=== PATIENT | female | born 1990 | race Caucasian/White ===

== ENCOUNTER 2019-11-28 08:25 | Emergency (ER) | payer BC, OTHER ==
--- NOTE | 2019-11-28 09:52 | EDM.PDOC ---
ED HPI GENERAL MEDICAL PROBLEM - General Chief Complaint: General Stated Complaint: POSSIBLE FLU Time Seen by Provider: 11/28/19 09:40 Source of Information: Reports: Patient History Limitations: Reports: No Limitations - History of Present Illness INITIAL COMMENTS - FREE TEXT/NARRATIVE: Patient is a 29-year-old female comes in complaining of fever with muscle aches for the last 3 to 4 days. Patient also is complaining of having a cough which is occasionally productive of a clear blood-streaked sputum. She has vomited 1 time. She denies any diarrhea or dysuria. Patient denies being short of breath. She has not had previously similar symptoms with multiple members of the family have been having flulike symptoms. Patient is complaining of a mild headache. Taking to treat her symptoms. She has not a cigarette smoker. Duration: Day(s): (4) Location: Reports: Generalized Quality: Reports: Ache Severity: Moderate Associated Symptoms: Reports: cough w sputum, Fever/Chills, Nausea/Vomiting. 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 ED EXAM, GENERAL - Physical Exam Exam: See Below Free Text/Narrative:: Exam: See Below Exam Limited By: No Limitations Head: Atraumatic Neck: Normal Inspection. No: Carotid Bruit, Lymphadenopathy (R). Mild oropharyngeal erythema. Respiratory/Chest: No Respiratory Distress, Lungs Clear, Normal Breath Sounds, No Accessory Muscle Use. Chest Non-Tender Cardiovascular: Normal Peripheral Pulses, Regular Rate, Rhythm, No Edema, No JVD GI/Abdominal: Normal Bowel Sounds, Tender. No: Non-Tender Back Exam: Normal Inspection. No: CVA Tenderness (R) Extremities: Normal Inspection. No: No Pedal Edema Neurological: Alert, Oriented, Normal Cognition Psychiatric: Normal Affect Skin Exam: Warm Lymphatic: No Adenopathy Course - Vital Signs Last Recorded V/S: Last Vital Signs Temp 36.6 C 11/28/19 09:36 Pulse 130 H 11/28/19 09:36 Resp 16 11/28/19 09:36 BP 148/84 H 11/28/19 09:36 Pulse Ox 96 11/28/19 09:36 - Re-Assessments/Exams Free Text/Narrative Re-Assessment/Exam: 11/28/19 10:30 Patient is positive for strep pharyngitis. Influenza is negative. I am planning to put her on a Z-Shawn. She is to return to ER if worse. Ibuprofen as needed. Departure - Departure Time of Disposition: 10:31 Disposition: Home, Self-Care 01 Condition: Good Clinical Impression: Strep pharyngitis, Acute bronchitis - Discharge Information Instructions: Strep Throat, [id number], Acute Bronchitis, Adult, [id number] Referrals: Barron Gonzalez MD [Primary Care Provider] - Forms: ED Department Discharge Additional Instructions: Ibuprofen and Tylenol as needed. Increase rest and fluids. Z-Shawn as directed. Return to ER if worse. Follow-up with PCP if not improving. The following information is given to patients seen in the emergency department who are being discharged to home. This information is to outline your options for follow-up care. We provide all patients seen in our emergency department with a follow-up referral. The need for follow-up, as well as the timing and circumstances, are variable depending upon the specifics of your emergency department visit. If you don't have a primary care physician on staff, we will provide you with a referral. We always advise you to contact your personal physician following an emergency department visit to inform them of the circumstance of the visit and for follow-up with them and/or the need for any referrals to a consulting specialist. The emergency department will also refer you to a specialist when appropriate. This referral assures that you have the opportunity for follow-up care with a specialist. All of these measure are taken in an effort to provide you with optimal care, which includes your follow-up. Under all circumstances we always encourage you to contact your private physician who remains a resource for coordinating your care. When calling for follow-up care, please make the office aware that this follow-up is from your recent emergency room visit. If for any reason you are refused follow-up, please contact the [facility] Emergency Department at and asked to speak to the emergency department charge nurse. Sepsis Event Note - Focused Exam Vital Signs: Vital Signs Temp Pulse Resp BP Pulse Ox 11/28/19 09:36 36.6 C 130 H 16 148/84 H 96 Date Exam was Performed: 11/28/19 Time Exam was Performed: 10:30
[2019-11-28 10:53] VITALS: BP 141/90; PULSE 110
== END 2019-11-28 10:46 | disposition home or self-care (01) ==
LOC: MW.ED 08:25
DX: J02.0 Streptococcal pharyngitis (principal); J20.9 Acute bronchitis, unspecified
CPT/HCPCS: 87804; 87880-QW; 99282; 99284

== ENCOUNTER 2020-06-06 07:37 | Emergency (ER) | payer MEDICAID, OTHER ==
[2020-06-06 07:44] VITALS: BP 114/73
--- NOTE | 2020-06-06 07:59 | EDM.PDOC ---
ED HPI GENERAL MEDICAL PROBLEM - General Chief Complaint: Lower Extremity Injury/Pain Stated Complaint: LEFT FOOT SWOLLEN Time Seen by Provider: 06/06/20 07:47 - History of Present Illness INITIAL COMMENTS - FREE TEXT/NARRATIVE: 29-year-old female is presenting with moderate left midfoot pain after dropping a table on her yesterday. Patient reports moderate pain having to walk on the outside of her foot some pain in the midfoot with range of motion of the toes as well. No other injury no pain in the ankle knee etc. 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, 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 Last delivery was twins Musculoskeletal History: Reports: None Neurological History: Reports: None Psychiatric History: Reports: Bipolar, Depression Endocrine/Metabolic History: Reports: None Hematologic History: Reports: None Immunologic History: Reports: None Oncologic (Cancer) History: Reports: None Dermatologic History: Reports: None - Infectious Disease History Infectious Disease History: Reports: None - Past Surgical History Head Surgeries/Procedures: Reports: None HEENT Surgical History: Reports: None Cardiovascular Surgical History: Reports: None Respiratory Surgical History: Reports: None GI Surgical History: Reports: Cholecystectomy Female Surgical History: Reports: Section Endocrine Surgical History: Reports: None Neurological Surgical History: Reports: None Musculoskeletal Surgical History: Reports: None Oncologic Surgical History: Reports: None Dermatological Surgical History: Reports: None Social & Family History - Family History Family Medical History: Noncontributory - Tobacco Use Smoking Status *Q: Never Smoker Second Hand Smoke Exposure: No - Caffeine Use Caffeine Use: Reports: Soda - Recreational Drug Use Recreational Drug Use: No Review of Systems - Review of Systems Review Of Systems: See Below Constitutional: Reports: No Symptoms Musculoskeletal: Reports: Other (Per HPI) ED EXAM, GENERAL - Physical Exam Exam: See Below Free Text/Narrative:: General Appearance: No acute distress, appears comfortable Skin: No rash HEENT: Normocephalic/atraumatic, sclera anicteric, mucous membranes moist Neck: Normal range of motion Musculoskeletal: Swelling and tenderness over the mid region of the metatarsals 1 through 3 no focal bony tenderness or swelling in the ankle digits calcaneus no other sign of trauma in the left lower extremity 2+ DP pulse Neurologic: Awake, alert, no obvious deficits, moving all extremities Psychiatric: Appropriate, cooperative Course - Vital Signs Last Recorded V/S: Last Vital Signs Temp 96.7 F L 06/06/20 07:41 Pulse 96 06/06/20 07:41 Resp 17 06/06/20 07:41 BP 114/73 06/06/20 07:41 Pulse Ox 98 06/06/20 07:41 - Orders/Labs/Meds Orders: Active Orders 24 hr Category Date Time Status DME for Discharge [COMM] Stat Oth 06/06/20 08:14 Ordered Departure - Departure Time of Disposition: 08:19 Disposition: Home, Self-Care 01 Condition: Good Clinical Impression: Contusion of left foot - Discharge Information *PRESCRIPTION DRUG MONITORING PROGRAM REVIEWED*: Not Applicable *COPY OF PRESCRIPTION DRUG MONITORING REPORT IN PATIENT KATHERINE: Not Applicable Instructions: Foot Contusion, How to Use Cold Therapy Referrals: Barron Gonzalez MD [Primary Care Provider] - Forms: ED Department Discharge Additional Instructions: The postop shoe should provide additional support and make it easier for you to walk. The shoe with a very firm inflexible sole will likely help you in a similar way. Encourage you to take Tylenol or ibuprofen as instructed on the bottle as needed for pain your foot will also likely benefit from cold therapy and elevation to help with swelling. I would expect your foot to improve over the next few days if you continue to have any problems I encourage you to contact your primary care doctor. The following information is given to patients seen in the emergency department who are being discharged to home. This information is to outline your options for follow-up care. We provide all patients seen in our emergency department with a follow-up referral. The need for follow-up, as well as the timing and circumstances, are variable depending upon the specifics of your emergency department visit. If you don't have a primary care physician on staff, we will provide you with a referral. We always advise you to contact your personal physician following an emergency department visit to inform them of the circumstance of the visit and for follow-up with them and/or the need for any referrals to a consulting specialist. The emergency department will also refer you to a specialist when appropriate. This referral assures that you have the opportunity for follow-up care with a specialist. All of these measure are taken in an effort to provide you with optimal care, which includes your follow-up. Under all circumstances we always encourage you to contact your private physician who remains a resource for coordinating your care. When calling for follow-up care, please make the office aware that this follow-up is from your recent emergency room visit. If for any reason you are refused follow-up, please contact the [facility] Emergency Department at and asked to speak to the emergency department charge nurse. Sepsis Event Note (ED) - Evaluation Sepsis Screening Result: No Definite Risk - Focused Exam Vital Signs: Vital Signs Temp Pulse Resp BP Pulse Ox 06/06/20 07:41 96.7 F L 96 17 114/73 98 - My Orders Last 24 Hours: My Active Orders 06/06/20 08:14 DME for Discharge [COMM] Stat - Assessment/Plan Last 24 Hours: My Active Orders 06/06/20 08:14 DME for Discharge [COMM] Stat Assessment:: 29-year-old female with left foot contusion versus midfoot fracture. No skin violation x-ray pending no signs of significant malalignment. No signs of compartment syndrome extremity neurovascularly intact. X-ray reveals no fracture or malalignment. Patient placed in a postop shoe. She requires this for protective and restorative treatment and to allow her to walk with an improved gait. She will likely require this for the next several days to 1 week. Patient will follow-up with her primary care doctor return precautions discussed and understood.
--- NOTE | 2020-06-06 08:18 | CR ---
Left foot: 2 views of the left foot were obtained. Comparison: No previous foot exam. Joint spaces are preserved. No discrete fracture or other bony abnormality is appreciated. Impression: 1. No abnormality is appreciated on 2 view left foot study. Diagnostic code #1 This report was dictated in MDT
[2020-06-06 08:26] VITALS: PULSE 83
== END 2020-06-06 08:25 | disposition home or self-care (01) ==
LOC: MW.ED 07:37
DX: S90.32XA Contusion of left foot, initial encounter (principal); F31.9 Bipolar disorder, unspecified; Z79.899 Other long term (current) drug therapy; W20.8XXA Other cause of strike by thrown, projected or falling object, initial encounter
CPT/HCPCS: 73620-26-LT; 73620-LT; 99282; 99283-25

== ENCOUNTER 2023-03-06 16:20 | Emergency (ER) | payer MEDICAID ==
[2023-03-06] MEDS ORDERED: Sodium Chloride 0.9% 2.5 ML Syringe FLUSH PRN (16:56)
[2023-03-06] MEDS ORDERED: Sodium Chloride 0.9% 10 ML Syringe FLUSH PRN (16:56)
[2023-03-06 17:44] LABS: BLOOD UREA NITROGEN,BUN 7 mg/dL (7.0-18.0); CHLORIDE,CL 103 mmol/L (98-107); GLUCOSE RANDOM 99 mg/dL (74-106); POTASSIUM,K 2.8 mmol/L (3.5-5.1); SODIUM,NA 137 mmol/L (136-145)
[2023-03-06 17:46] LABS: ESTIMATED GFR 101 mL/min (>60)
[2023-03-06] MEDS ORDERED: Potassium Chloride 20 MEQ Tab.ER PO STA (17:57)
[2023-03-06 18:52] VITALS: BP 108/75; PULSE 78
== END 2023-03-06 18:51 | disposition home or self-care (01) ==
LOC: MW.ED 16:20
DX: O99.891 Other specified diseases and conditions complicating pregnancy (principal); R07.89 Other chest pain; O99.281 Endocrine, nutritional and metabolic diseases complicating pregnancy, first trimester; E87.6 Hypokalemia; Z98.890 Other specified postprocedural states; Z3A.01 Less than 8 weeks gestation of pregnancy
CPT/HCPCS: 36415; 80053; 84484; 84702; 85025; 93005; 99285; A9270; J3490; 93010; 99283

== ENCOUNTER 2023-10-14 05:05 | Inpatient (IN) | payer MEDICAID ==
[2023-10-14] MEDS ORDERED: Sodium Chloride 0.9% 10 ML Syringe FLUSH PRN (05:25)
[2023-10-14] MEDS ORDERED: Citric Acid/Sodium Citrate Solution 30 ML Cup PO ONE (05:25)
[2023-10-14] MEDS ORDERED: ceFAZolin 2 GM in Sodium Chloride 0.9% 50 ML IV ONE (05:25)
[2023-10-14] MEDS ORDERED: Sodium Chloride 0.9% 2.5 ML Syringe FLUSH PRN (05:25)
[2023-10-14] MEDS ORDERED: Sodium Chloride 0.9% 20 ML SDV IV PRN (05:25)
[2023-10-14] MEDS ORDERED: Oxytocin/0.9 % Sodium Chloride 30 UNIT/500 ML BAG IV SCH ×2 (05:30→11:15)
[2023-10-14] MEDS ORDERED: Lactated Ringers 1,000 ML IV SCH ×2 (05:30→11:15)
[2023-10-14 06:13] LABS: HEMATOCRIT 30.4 % (37.0-47.0); HEMOGLOBIN 9.8 g/dL (12.0-16.0); MEAN CORPUSCULAR HEMOGLOBIN 24.3 pg (28.0-32.0); MEAN CORPUSCULAR HGB CONC 32.2 g/dL (32.0-36.0); MEAN CORPUSCULAR VOLUME 75.4 fL (83.0-99.0); MEAN PLATELET VOLUME 10.4 fL (9.4-12.3); PLATELET COUNT,PLT 222 K/uL (150-400); RED BLOOD CELL COUNT 4.03 M/uL (4.10-5.30); WHITE BLOOD CELL COUNT,WBC 9.32 K/uL (3.9-11.3)
[2023-10-14] MEDS ORDERED: HYDROmorphone 1 MG/ML Syringe IVPUSH PRN (07:03)
[2023-10-14] MEDS ORDERED: ePHEDrine 50 MG/ML SDV IVPUSH PRN (07:03)
[2023-10-14] MEDS ORDERED: Metoclopramide 10 MG/2 ML SDV IVPUSH PRN (07:03)
[2023-10-14] MEDS ORDERED: Naloxone 0.4 MG/ML SDV IVPUSH PRN (07:03)
[2023-10-14] MEDS ORDERED: Albuterol 0.083% 2.5 MG/3 ML Neb Soln NEB PRN (07:03)
[2023-10-14] MEDS ORDERED: droPERidol 5 MG/2 ML SDV IVPUSH PRN (07:03)
[2023-10-14] MEDS ORDERED: fentaNYL 100 MCG/2 ML SDV IVPUSH PRN (07:03)
[2023-10-14] MEDS ORDERED: diphenhydrAMINE 50 MG/ML SDV IVPUSH PRN ×2 (07:03→11:06)
[2023-10-14] MEDS ORDERED: Acetaminophen/oxyCODONE 325-5 MG Tab PO PRN (07:03)
[2023-10-14] MEDS ORDERED: fentaNYL 50 MCG/ML SDV IVPUSH PRN (07:03)
[2023-10-14] MEDS ORDERED: Ondansetron 4 MG/2 ML SDV IVPUSH PRN ×3 (07:03→11:06)
[2023-10-14] MEDS ORDERED: Morphine 2 MG/ML SYRINGE IVPUSH PRN (07:03)
[2023-10-14] MEDS ORDERED: Morphine PF 10 MG/10 ML SDV ONE (07:03)
[2023-10-14] MEDS ORDERED: Ropivacaine 0.5% 5 MG/ML 30 ML SDV ONE (07:12)
[2023-10-14] MEDS ORDERED: Phenylephrine 1% 10 MG/ML SDV ONE (07:12)
[2023-10-14] MEDS ORDERED: Oxytocin 10 Units/1 ML SDV ONE (07:12)
[2023-10-14] MEDS ORDERED: Tranexamic Acid 1,000 MG/10 ML Vial ONE (07:12)
[2023-10-14] MEDS ORDERED: Lidocaine 2% 5 ML SDV ONE (07:12)
[2023-10-14] MEDS ORDERED: Ketorolac 30 MG/ML SDV ONE (07:12)
[2023-10-14] MEDS ORDERED: Dexmedetomidine 200 MCG/2 ML SDV ONE (07:12)
[2023-10-14] MEDS ORDERED: Dexamethasone 4 MG/ML 5 ML MDV ONE (07:12)
[2023-10-14] MEDS ORDERED: ceFAZolin 1 GM Vial ONE (07:13)
[2023-10-14] MEDS ORDERED: Calcium Chloride 10% 1 GM/10 ML Syringe ONE (07:21)
[2023-10-14] MEDS ORDERED: ePHEDrine 50 MG/ML SDV ONE (09:30)
[2023-10-14] MEDS ORDERED: oxyCODONE 5 MG Tab PO PRN (11:06)
[2023-10-14] MEDS ORDERED: Misoprostol 200 MCG Tab RECTAL PRN (11:06)
[2023-10-14] MEDS ORDERED: Oxytocin 10 Units/1 ML SDV IM PRN (11:06)
[2023-10-14] MEDS ORDERED: Lanolin 100% Cream 7 GM Tube TOP PRN (11:06)
[2023-10-14] MEDS ORDERED: Acetaminophen 500 MG Tab PO PRN (11:06)
[2023-10-14] MEDS ORDERED: Methylergonovine 0.2 MG/1 ML Amp IM PRN (11:06)
[2023-10-14] MEDS ORDERED: Bisacodyl 10 MG Supp RECTAL PRN (11:06)
[2023-10-14 11:20] LABS: PH,UMBILICAL ARTERIAL 7.27 (7.18-7.38); PH,UMBILICAL VENOUS 7.4 (7.25-7.45)
[2023-10-14] MEDS: Acetaminophen 1,000 MG in Premix Bag 1 BAG IV PRN ×2 (12:45→18:28)
[2023-10-14] MEDS ORDERED: Ketorolac 30 MG/ML SDV IVPUSH SCH (13:00)
[2023-10-14] MEDS: Ketorolac 30 MG/ML SDV IVPUSH SCH ×2 (16:29→21:49)
[2023-10-14] MEDS: Docusate Sodium 100 MG Cap PO SCH (20:34)
[2023-10-15] MEDS: Acetaminophen 1,000 MG in Premix Bag 1 BAG IV PRN (01:00)
[2023-10-15] MEDS: Ketorolac 30 MG/ML SDV IVPUSH SCH ×3 (04:10→15:42)
[2023-10-15 07:01] LABS: HEMATOCRIT 26.2 % (37.0-47.0); HEMOGLOBIN 8.6 g/dL (12.0-16.0)
[2023-10-15] MEDS: Docusate Sodium 100 MG Cap PO SCH (09:07)
[2023-10-15] MEDS ORDERED: Ibuprofen 800 MG Tab PO PRN (11:06)
[2023-10-15 15:56] VITALS: BP 127/73; PULSE 77
== END 2023-10-15 18:27 | disposition home or self-care (01) | DRG 787 ==
LOC: MW.OB 05:05
PROVIDERS: ADMIT Obstetrics & Gynecology; ATTEND Obstetrics & Gynecology
PROC: 10D00Z1 Extraction of Products of Conception, Low, Open Approach (ICD-10-PCS; principal; 2023-10-14 08:00)
DX: O34.211 Maternal care for low transverse scar from previous cesarean delivery (principal); D62 Acute posthemorrhagic anemia; O98.52 Other viral diseases complicating childbirth; O99.02 Anemia complicating childbirth; O99.214 Obesity complicating childbirth; B00.9 Herpesviral infection, unspecified; Z88.7 Allergy status to serum and vaccine; Z37.0 Single live birth; Z3A.39 39 weeks gestation of pregnancy
CPT/HCPCS: 36415; 59025; 82803; 85014; 85018; 85027; 86592; 86850; 86900; 86901; A9270-GY; J0131; J0690; J1100; J1885; J2274; J2371; J2405; J2590; J2795; J3490; J7120